=== PATIENT | male | born 1955 | race Caucasian/White ===

== ENCOUNTER → 2023-10-31 08:41 | Outpatient (REF) | payer MEDICARE, OTHER, SELFPAY | LOC: HWRAD 08:41 | PROVIDERS: ATTENDING PHYSICIAN Colon & Rectal Surgery; FAMILY PHYSICIAN Internal Medicine | DX: K56.609 Unspecified intestinal obstruction, unspecified as to partial versus complete obstruction (principal); K91.89 Other postprocedural complications and disorders of digestive system; K57.30 Diverticulosis of large intestine without perforation or abscess without bleeding | CPT/HCPCS: 74261 ==